=== PATIENT | female | born 1975 | race African-American/Black ===

== ENCOUNTER 2018-07-15 05:08 | Day surgery (SDC) | payer OTHER ==
[~2018-07-15 05:08] MED LIST: CEFAZOLIN 1 GM/D5W RTU 1 GM/50 ML RTUPB IV PRN; DEXTROSE 5%-LACTATED RINGERS 1,000 ML IV PRN
[2018-07-15] MEDS ORDERED: CEFAZOLIN 1 GM/D5W RTU 1 GM/50 ML RTUPB IV ONE (05:28)
[2018-07-15] MEDS ORDERED: LIDOCAINE 1% INJ-PF (10 MG/ML) 30 ML SDV ONE (06:43)
[2018-07-15] MEDS ORDERED: FENTANYL CITRATE INJ/PF 100 MCG/2 ML AMPUL ONE (07:05)
[2018-07-15] MEDS ORDERED: PROPOFOL INJ 200 MG/20 ML VIAL IV ONE (07:05)
[2018-07-15] MEDS ORDERED: ACETAMINOPHEN 0 MG/0 ML RTUPB IV ONE (07:05)
[2018-07-15] MEDS ORDERED: MIDAZOLAM 2 MG/2 ML INJ ONE (07:05)
[2018-07-15 07:29] LABS: ABSOLUTE EOSINOPHILS # (AUTO) 0.1 10^3/uL (0.0-0.6); ABSOLUTE LYMPHOCYTES (AUTO) 1.9 10^3/uL (0.5-4.7); ABSOLUTE MONOCYTES (AUTO) 0.2 10^3/uL (0.1-1.4); ABSOLUTE NEUT (AUTO) 1.6 10^3/uL (1.7-8.2); EOSINOPHILS % (AUTO) 2.8 % (0-6); HEMATOCRIT 38.5 % (36.0-47.0); HEMOGLOBIN 13.2 g/dL (12.0-15.5); LYMPHOCYTES % (AUTO) 49.6 % (13-45); MEAN CORPUSCULAR HEMOGLOBIN 31.9 pg (27.0-33.4); MEAN CORPUSCULAR HGB CONC 34.2 g/dL (32.0-36.0); MEAN CORPUSCULAR VOLUME 93 fl (80-97); MONOCYTES % (AUTO) 5.4 % (3-13); PLATELET COUNT 187 10^3/uL (150-450); RED BLOOD COUNT 4.13 10^6/uL (3.72-5.28); RED CELL DISTRIBUTION WIDTH 13.4 % (11.5-14.0); SEGMENTED NEUTROPHILS % (AUTO) 41.2 % (42-78); TOTAL CELLS COUNTED % (AUTO) 100 %; WHITE BLOOD COUNT 3.9 10^3/uL (4.0-10.5)
[2018-07-15] MEDS ORDERED: FENTANYL CITRATE INJ/PF 100 MCG/2 ML AMPUL IV PRN ×3 (07:57)
[2018-07-15] MEDS ORDERED: DIPHENHYDRAMINE HCL 50 MG/ML VIAL IV PRN (07:57)
[2018-07-15] MEDS ORDERED: PROMETHAZINE HCL INJ 25 MG/1 ML VIAL IV PRN ×2 (07:57)
[2018-07-15] MEDS ORDERED: OXYCODONE-ACETAMINOPHEN 5-325 MG TABLET PO PRN ×3 (07:57→08:26)
[2018-07-15] MEDS ORDERED: MEPERIDINE HCL/PF INJ 25 MG/1 ML DISP.SYRIN IV PRN (07:57)
--- NOTE | 2018-07-15 08:06 | Operative Report ---
Operative Report DATE OF SURGERY: 07/15/18 PREOPERATIVE DIAGNOSIS: Left posterior neck lipoma POSTOPERATIVE DIAGNOSIS: Same OPERATION: Exploration of left posterior neck, excision of lipoma SURGEON: KAREN CENTENO WEB ADMINISTRATOR: SHERYL JIM ANESTHESIA: LMAC TISSUE REMOVED OR ALTERED: Lipoma COMPLICATIONS: None ESTIMATED BLOOD LOSS: Minimal INTRAOPERATIVE FINDINGS: See below PROCEDURE: Patient was taken to the preop holding her to the main operating room where LMAC seizure was induced. She was placed in the right lateral decubitus position left side up. The posterior neck was prepped and draped in sterile fashion. Surgical plan surgical timeout were conducted. The palpable subtle mass on the posterior left of midline neck was Johanna times 1% plain lidocaine. Approximately 3 cm incision was made over the palpable deformity, subcutaneous tissue divided with electrocautery. Provisional fascia was divided, and an intramuscular Can was excised. This was poorly circumscribed. Once the lipomatous tissue was excised and sent to pathology, careful inspection of the wound revealed no other lipomatous tissue. [place] the operation was complete. Wound closed in layers with 3-0 Vicryl benzoin and Steri-Strips. Patient tolerated procedure well. She was then taken to the recovery room stable condition The physician recycling assistant, Ms. Salinas, provided assistance during this case by: Assisting with retracting tissue, instillation of local anesthesia and closure of skin incisions.
--- NOTE | 2018-07-15 08:26 | Discharge Summary ---
Discharge Summary (SDC) - Discharge Final Diagnosis: lipoma of posterior neck Date of Surgery: 07/15/18 Discharge Date: 07/15/18 Condition: Stable Treatment or Instructions: WOUND CARE: You may shower in 48 hours. Leave steri strips (paper band aids) intact until they fall off on their own. Wash wound with warm water and soap, do not scrub. Pat dry and cover if needed. PAIN MANAGEMENT: You may take Toradol 10mg one pill by mouth every six hours as needed for pain. FOLLOW UP: Follow up at [facility] in one week for evaluation. Call clinic sooner with questions/concerns. Prescriptions: Ketorolac Tromethamine [Toradol 10 mg Tablet] 10 mg PO Q6HP PRN #20 tablet PRN Reason: Referrals: ELLIE WIGGINS MD [Primary Care Provider] - Discharge Diet: As Tolerated Discharge Activity: Walk Frequently Report the Following to Your Physician Immediately: Fever over 101 Degrees, Unusual Bleeding, Redness, Swelling, Warmth, Drainage-Foul Smelling
[2018-07-15 09:58] VITALS: BP 128/92
== END 2018-07-15 09:45 | disposition home or self-care (01) ==
LOC: OROUT 05:08
PROVIDERS: ATTEND Surgery
DX: D17.0 Benign lipomatous neoplasm of skin and subcutaneous tissue of head, face and neck (principal); J45.909 Unspecified asthma, uncomplicated; F17.210 Nicotine dependence, cigarettes, uncomplicated; Z88.2 Allergy status to sulfonamides; Z79.51 Long term (current) use of inhaled steroids
CPT/HCPCS: 36415; 85025; 81025; 88304 ×2; 21552; J2250; J0690; J3010; J3490; J2704; 300; J0131

== ENCOUNTER 2019-12-06 09:15 | Inpatient (IN) | payer OTHER ==
[2020-02-21 09:36] LABS: APPEARANCE,URINE CLEAR; BILIRUBIN,URINE NEGATIVE (NEGATIVE); COLOR,URINE YELLOW; GLUCOSE, URINE NEGATIVE (NEGATIVE); KETONES,URINE TRACE mg/dL (NEGATIVE); LEUKOCYTE ESTERASE,URINE NEGATIVE (NEGATIVE); NITRITE,URINE NEGATIVE (NEGATIVE); PROTEIN,URINE NEGATIVE (NEGATIVE); URINE SPECIFIC GRAVITY 1.026
[2020-02-21 09:42] LABS: HEMATOCRIT 39.8 % (36.0-47.0); HEMOGLOBIN 13.5 g/dL (12.0-15.5); MEAN CORPUSCULAR HEMOGLOBIN 31.9 pg (27.0-33.4); MEAN CORPUSCULAR VOLUME 94 fl (80-97); PLATELET COUNT 188 10^3/uL (150-450); RED BLOOD COUNT 4.23 10^6/uL (3.72-5.28); RED CELL DISTRIBUTION WIDTH 12.7 % (11.5-14.0)
--- NOTE | 2020-02-21 10:02 | RADIOLOGY REPORT (SQ) ---
EXAM DESCRIPTION: CHEST PA/LATERAL IMAGES COMPLETED DATE/TIME: 02/21/2020 9:21 am REASON FOR STUDY: PRE-OP COMPARISON: None. EXAM PARAMETERS: NUMBER OF VIEWS: Two views. TECHNIQUE: PA and lateral views of the chest were obtained. RADIATION DOSE: NA. LIMITATIONS: None. FINDINGS: LUNGS AND PLEURA: No consolidation, pleural effusion or pneumothorax. MEDIASTINUM AND HILAR STRUCTURES: No mediastinal or hilar contour abnormality. HEART AND VASCULAR STRUCTURES: The cardiac silhouette and pulmonary vasculature are within normal arzate its. BONES: No acute findings. HARDWARE: None in the chest. OTHER: No other finding. IMPRESSION: No acute cardiopulmonary process. TECHNICAL DOCUMENTATION: JOB ID: [id number] 2010 [employer]- All Rights Reserved Reading location - IP/workstation name: [email or web address]
[2020-02-21 10:13] LABS: ANION GAP 6 (5-19); BLOOD UREA NITROGEN 10 mg/dL (7-20); CALCIUM 9.2 mg/dL (8.4-10.2); CARBON DIOXIDE 29 mmol/L (22-30); CHLORIDE 102 mmol/L (98-107); GLUCOSE 81 mg/dL (75-110); POTASSIUM 3.8 mmol/L (3.6-5.0)
--- NOTE | 2020-02-22 00:25 | EKG REPORT ---
SEVERITY:- NORMAL ECG - SINUS RHYTHM : Confirmed by: Javier Jacobson 22-Feb-2020 00:24:11
[2020-02-28] MEDS ORDERED: LIDOCAINE 0.5% INJ-PF (5 MG/ML) 50 ML SDV SUBCUT PRN (05:00)
[2020-02-28] MEDS ORDERED: CEFAZOLIN 1 GM/D5W RTU 1 GM/50 ML RTUPB IV PRN (05:00)
[2020-02-28] MEDS ORDERED: CEFAZOLIN 1 GM/D5W RTU 1 GM/50 ML RTUPB IV ONE (06:17)
[2020-02-28] MEDS ORDERED: ONDANSETRON HCL INJ/PF 4 MG/2 ML SDV ONE (06:46)
[2020-02-28] MEDS ORDERED: HYDROMORPHONE HCL INJ/PF 2 MG/ML AMPULE ONE (06:46)
[2020-02-28] MEDS ORDERED: PROPOFOL INJ 200 MG/20 ML VIAL IV ONE (06:46)
[2020-02-28] MEDS ORDERED: FENTANYL CITRATE INJ/PF 100 MCG/2 ML AMPUL ONE (06:46)
[2020-02-28] MEDS ORDERED: KETOROLAC TROMETHAMINE 60 MG/2 ML SDV ONE (06:46)
[2020-02-28] MEDS ORDERED: MIDAZOLAM 2 MG/2 ML INJ ONE (06:46)
[2020-02-28] MEDS ORDERED: DEXAMETHASONE SOD PHOSPHATE INJ 4 MG/1 ML VIAL ONE (06:46)
[2020-02-28] MEDS ORDERED: BUPIVACAINE INJ/PF LIPOSOME/PF 266 MG/20 ML SDV ONE (07:10)
[2020-02-28] MEDS ORDERED: MEPERIDINE HCL/PF INJ 25 MG/1 ML DISP.SYRIN IV PRN (07:44)
[2020-02-28] MEDS ORDERED: MORPHINE SULFATE 10 MG/ML INJ IV PRN (07:44)
[2020-02-28] MEDS ORDERED: DIPHENHYDRAMINE HCL 50 MG/ML VIAL IV PRN (07:44)
[2020-02-28] MEDS ORDERED: ONDANSETRON HCL INJ/PF 4 MG/2 ML SDV IV PRN (07:44)
[2020-02-28] MEDS ORDERED: OXYCODONE-ACETAMINOPHEN 5-325 MG TABLET PO PRN ×3 (07:44→10:00)
[2020-02-28] MEDS ORDERED: PROMETHAZINE HCL INJ 25 MG/1 ML VIAL IV PRN ×2 (07:44)
[2020-02-28] MEDS ORDERED: FENTANYL CITRATE INJ/PF 100 MCG/2 ML AMPUL IV PRN ×3 (07:44)
--- NOTE | 2020-02-28 08:58 | Operative Report ---
Operative Report DATE OF SURGERY: 02/28/20 PREOPERATIVE DIAGNOSIS: Total abdominal hysterectomy for uterine leiomyoma POSTOPERATIVE DIAGNOSIS: Same OPERATION: Total abdominal hysterectomy bilateral salpingectomy SURGEON: MITCHEL PRICE ANESTHESIA: GA TISSUE REMOVED OR ALTERED: Cervix uterus bilateral tubes COMPLICATIONS: None ESTIMATED BLOOD LOSS: 50mL's INTRAOPERATIVE FINDINGS: 18-week size fibroid uterus normal tubes normal ovaries normal upper abdomen PROCEDURE: INDICATIONS FOR PROCEDURE: The patient had unreasonable uterine bleeding despite multiple outpatient management. She desired attempt at definitive therapy. The usual risks of bleeding, infection, anesthesia, and damage to organs or tissues was discussed with the patient who understood, and she desires attempt at definitive therapy. PROCEDURE: The patient was taken to the operating room. The patient was placed in Supine position. Adequate anesthesia was ascertained. She was prepped and draped in the usual manner for a abdominal hysterectomy. EUA was performed after a time out was performed and antibiotics had been given. Bladder was drained under sterile technique. Via a midline incision extending through the subcutaneous fat and fascia the peritoneum was entered without difficulty and abdominal contents examined and packed out of the pelvis. The uterus exteriorized throughout the procedure and this precluded the need for a retractor. The round ligaments were identified bilaterally suture ligated free tied and cauterized. The bladder was advanced sequentially throughout this aspect of the procedure with LigaSure device used for hemostasis bilaterally down to the level uterine vessels which were crossclamped and tied with a #1 chromic catgut. The anterior cul-de-sac was entered without difficulty. The vagina was then closed with interrupted number chromic catgut in interrupted fashion the cervix and uterus were handed off the operative field. The pedicles were noted to be dry. The ovaries were visually normal. Both tubes were removed with the assistance of LigaSure device and good hemostasis was confirmed. The parotid peritoneum was noted to be dry the rectus fascia was closed with double-stranded PDS suture skin approximated skin belle Exparel was used on the incision site. Good he mostasis was noted. TThe bladder was drained of a small amount of urine at the completion of the case. All sponge and needle counts were correct.
[2020-02-28] MEDS ORDERED: MORPHINE INJ 8 MG DOSE IM PRN (10:00)
[2020-02-28] MEDS ORDERED: PROMETHAZINE HCL INJ 25 MG/1 ML VIAL IM PRN (10:00)
[2020-02-28] MEDS ORDERED: MORPHINE INJ PRN (10:00)
[2020-02-28] MEDS: RTU IV SCH ×2 (12:14→18:46)
[2020-02-28] MEDS: CEFAZOLIN 1 GM IV SCH ×2 (12:14→18:46)
[2020-02-28] MEDS ORDERED: GLYCOPYRROLATE 1 MG/5 ML VIAL ONE (14:14)
[2020-02-28] MEDS ORDERED: VECURONIUM BROMIDE INJ 10 MG VIAL IV ONE (14:14)
[2020-02-28] MEDS ORDERED: NEOSTIGMINE METHYLSULFATE 10 MG/10 ML VIAL ONE (14:14)
[2020-02-28] MEDS ORDERED: SUCCINYLCHOLINE CHLORIDE INJ 200 MG/10 ML VIAL ONE (14:14)
[2020-02-28] MEDS: IBUPROFEN 800 MG TABLET PO SCH ×2 (14:26→22:15)
[2020-02-28] MEDS: MORPHINE INJ PRN (14:27)
[2020-02-28] MEDS: LACTATED RINGERS 1000 ML IV PRN (16:30)
[2020-02-29] MEDS: MORPHINE INJ PRN (01:57)
[2020-02-29] MEDS: LACTATED RINGERS 1000 ML IV PRN (01:58)
[2020-02-29] MEDS: IBUPROFEN 800 MG TABLET PO SCH (05:57)
[2020-02-29 06:44] LABS: HEMOGLOBIN 10.7 g/dL (12.0-15.5); MEAN CORPUSCULAR HEMOGLOBIN 32.3 pg (27.0-33.4); MEAN CORPUSCULAR HGB CONC 34.6 g/dL (32.0-36.0); MEAN CORPUSCULAR VOLUME 93 fl (80-97); PLATELET COUNT 153 10^3/uL (150-450); RED BLOOD COUNT 3.33 10^6/uL (3.72-5.28); RED CELL DISTRIBUTION WIDTH 12.5 % (11.5-14.0); WHITE BLOOD COUNT 5.3 10^3/uL (4.0-10.5)
[2020-02-29 07:58] VITALS: BP 135/91
--- NOTE | 2020-03-07 12:13 | PDOC DISCHARGE SUMMARY ---
Impression - Admit/DC Date/PCP Admission Date/Primary Care Provider: 02/28/20 05:17 MITCHEL PRICE MD Discharge Date: 02/29/20 - Additional Information Resuscitation Status: Full Code Discharge Diet: As Tolerated Discharge Activity: Balance Activity w/Rest, No Lifting Over 10 Pounds, Pelvic Rest Referrals: MITCHEL PRICE MD [Primary Care Provider] - 03/06/21 10:30 am (CALL THE OFFICE OF ANY QUESTIONS AND CONCERNS) ELLIE WIGGINS MD [NO LOCAL MD] - Home Medications: No Home Medications 02/21/20 History of Present Illiness History of Present Illness: MILLY TORRES is a 44 year old female Physical Exam - Physical Exam Vital Signs: Temp Pulse Resp BP Pulse Ox 98.7 F 65 16 135/91 H 98 02/29/20 10:38 02/29/20 10:38 02/29/20 10:38 02/29/20 10:38 02/29/20 10:38 Results Laboratory Results: WBC 5.3 10^3/uL (4.0-10.5) 02/29/20 06:24 RBC 3.33 10^6/uL (3.72-5.28) L 02/29/20 06:24 Hgb 10.7 g/dL (12.0-15.5) L 02/29/20 06:24 Hct 31.0 % (36.0-47.0) L 02/29/20 06:24 MCV 93 fl (80-97) 02/29/20 06:24 MCH 32.3 pg (27.0-33.4) 02/29/20 06:24 MCHC 34.6 g/dL (32.0-36.0) 02/29/20 06:24 RDW 12.5 % (11.5-14.0) 02/29/20 06:24 Plt Count 153 10^3/uL (150-450) 02/29/20 06:24 Sodium 137.1 mmol/L (137-145) 02/21/20 08:49 Potassium 3.8 mmol/L (3.6-5.0) 02/21/20 08:49 Chloride 102 mmol/L (98-107) 02/21/20 08:49 Carbon Dioxide 29 mmol/L (22-30) 02/21/20 08:49 Anion Gap 6 (5-19) 02/21/20 08:49 BUN 10 mg/dL (7-20) 02/21/20 08:49 Creatinine 0.65 mg/dL (0.52-1.25) 02/21/20 08:49 Est GFR ( Amer) > 60 (>60) 02/21/20 08:49 Est GFR (MDRD) Non-Af > 60 (>60) 02/21/20 08:49 Glucose 81 mg/dL (75-110) 02/21/20 08:49 Calcium 9.2 mg/dL (8.4-10.2) 02/21/20 08:49 Urine Color YELLOW 02/21/20 08:39 Urine Appearance CLEAR 02/21/20 08:39 Urine pH 6.0 (5.0-9.0) 02/21/20 08:39 Ur Specific [place] 1.026 02/21/20 08:39 Urine Protein NEGATIVE mg/dL (NEGATIVE) 02/21/20 08:39 Urine Glucose (UA) NEGATIVE mg/dL (NEGATIVE) 02/21/20 08:39 Urine Ketones TRACE mg/dL (NEGATIVE) H 02/21/20 08:39 Urine Blood NEGATIVE (NEGATIVE) 02/21/20 08:39 Urine Nitrite NEGATIVE (NEGATIVE) 02/21/20 08:39 Urine Bilirubin NEGATIVE (NEGATIVE) 02/21/20 08:39 Urine Urobilinogen 2.0 mg/dL (<2.0) H 02/21/20 08:39 Ur Leukocyte Esterase NEGATIVE (NEGATIVE) 02/21/20 08:39 Urine WBC (Auto) 1 /HPF 02/21/20 08:39 Urine RBC (Auto) 1 /HPF 02/21/20 08:39 Squamous Epi Cells Auto 4 /HPF 02/21/20 08:39 Urine Mucus (Auto) MANY /LPF 02/21/20 08:39 Urine Ascorbic Acid NEGATIVE (NEGATIVE) 02/21/20 08:39 Urine HCG, Qual NEGATIVE (NEGATIVE) 02/28/20 05:15 COVID-19 Source NASOPHARYNGEAL 02/21/20 08:45 COVID-19 (MELISSA) NOT DETECTED 02/21/20 08:45 Blood Type O POSITIVE 02/26/20 08:15 Antibody Screen NEGATIVE 02/26/20 08:15 Impressions: Chest X-Ray 02/21/20 09:11 IMPRESSION: No acute cardiopulmonary process. Stroke Is this a Stroke Patient?: No Acute Heart Failure - Is this a Heart Failure Patient?: No
== END 2020-02-29 12:51 | disposition home or self-care (01) | DRG 743 ==
LOC: INOR 02-28 05:17 → 2N 02-28 10:03
PROVIDERS: ADMIT Specialist; ATTEND Specialist
PROC: 0UT70ZZ Resection of Bilateral Fallopian Tubes, Open Approach (ICD-10-PCS; 2020-02-28)
PROC: 0UT90ZZ Resection of Uterus, Open Approach (ICD-10-PCS; principal; 2020-02-28 07:15)
DX: D25.1 Intramural leiomyoma of uterus (principal); J45.909 Unspecified asthma, uncomplicated; F20.9 Schizophrenia, unspecified; F43.10 Post-traumatic stress disorder, unspecified; F17.210 Nicotine dependence, cigarettes, uncomplicated; Z88.2 Allergy status to sulfonamides; Z03.818 Encounter for observation for suspected exposure to other biological agents ruled out
CPT/HCPCS: 36415; 71046; 80048; 81001; 81025; 840; 85027; 86850; 86900; 86901; 87635; 88307; 93005; 93010; 94799; C9290; C9803; J0330; J0690; J1100; J1170; J1885; J2250; J2270; J2405; J2704; J2710; J3010; J3490; J7120